=== PATIENT | female | born 1990 | race Caucasian/White ===

== ENCOUNTER 2017-05-02 19:32 | Emergency (ER) | payer OTHER ==
[~2017-05-02] VITALS: Ht 170.2 cm; Wt 85.7 kg
[~2017-05-02 19:32] MED LIST: OXYC-12 PO; PREN1TAB14 PO
--- NOTE | 2017-05-02 19:51 | ED Lower Extremity ---
General Chief Complaint: Lower Extremity Stated Complaint: RT FOOT PAIN Nursing Triage Note: PT TO ED 10 PER W/C W/ FAMILY FOR C/O RT FOOT PAIN ONSET 1530 TODAY WHILE JUMPING OFF DIVING BOARD AT [employer] Nursing Sepsis Screen: No Definite Risk Source: patient, RN notes reviewed Exam Limitations: no limitations History of Present Illness Time seen by provider: 19:47 Initial Comments Patient presents c/ c/o right foot pain p/ injuring it jumping off a diving board earlier this afternoon. Sounds by the description that she may have hyperflexed her foot. Pain has become steadily worse. Currently an 8/10 c/ weight bearing and ambulation. Better when off it. Onset: this afternoon Severity: moderate (810) Pain/Injury Location: right foot Method of Injury: sports injury (jumping off a diving board) Modifying Factors: Worse With Movement, Improves With Rest Allergies and Home Medications Allergies Coded Allergies: No Known Drug Allergies (Verified Allergy, Unknown, 09/01/09) Home Medications Oxycodone Hcl/Acetaminophen 1 Each Tablet, 1-2 EACH PO Q4H PRN, (Reported) Vits W-Ca,Fe,Fa(<1MG) 1 Each Tablet, 1 TAB PO DAILY, (Reported) Take daily for as long as Constitutional: see HPI : No Musculoskeletal: see HPI, other (right foot pain) All Other Systems Reviewed Negative Unless Noted: Yes (Negative excepted noted.) Past Ixqplrv-Gmgwro-Czgkgi Hx Patient Social History Alcohol Use: Denies Use Recreational Drug Use: No Smoking Status: Never a Smoker Recent Foreign Travel: No Contact w/Someone Who Travel: No Recent Infectious Disease Expo: No Recent Hopitalizations: No Immunizations Up To Date Tetanus Booster (TDap): Unknown Surgeries HX Surgeries: No Respiratory Hx Respiratory Disorders: No Cardiovascular Hx Cardiac Disorders: No Neurological Hx Neurological Disorders: No Reproductive System Hx Reproductive Disorders: No Genitourinary Hx Genitourinary Disorders: No Gastrointestinal Hx Gastrointestinal Disorders: No Musculoskeletal Hx Musculoskeletal Disorders: No Endocrine Hx Endocrine Disorders: No HEENT HX ENT Disorders: No Cancer Hx Cancer: No Psychosocial Hx Psychiatric Problems: No Integumentary HX Skin/Integumentary Disorder: No Blood Transfusions Hx Blood Disorders: No Adverse Reaction to a Blood Tr: No Physical Exam Vital Signs Vital Sign - Last 12Hours 05/02/17 19:36 Temp 98.8 Pulse 121 Resp 20 B/P (MAP) 130/75 Pulse Ox 97 O2 Delivery Room Air Capillary Refill : Less Than 3 Seconds General Appearance: WD/WN, no apparent distress, obese Cardiovascular: tachycardia Respiratory: no respiratory distress Gastrointestinal: other (obese) Ankles: right ankle normal inspection, right ankle no evidence of injury Feet: right foot limited range of motion, right foot pain, right foot soft tissue tenderness (across the top of the foot), right foot swelling (trace) Neurologic/Tendon: normal sensation Neurologic/Psychiatric: no motor/sensory deficits, alert, normal mood/affect, oriented x 3 Skin: warm/dry Progress/Results/Core Measures Results/Orders My Orders Orders - JERONIMO LOGAN DO Foot, Right, 3 View (05/02/17 19:50) Lb Bandage (05/02/17 21:25) Crutches (05/02/17 21:25) Rx-Tramadol Hcl (Rx-Ultram) (05/02/17 21:30) Vital Signs/I&O Vital Sign - Last 12Hours 05/02/17 05/02/17 19:36 21:40 Temp 98.8 Pulse 121 88 Resp 20 18 B/P (MAP) 130/75 Pulse Ox 97 99 O2 Delivery Room Air Room Air Blood Pressure Mean: 93 Diagnostic Imaging Diagonstic Imaging: Xray Plain Films/CT/US/NM/MRI: other (foot; nothing acute per radiologist) Departure Impression Impression: Primary Impression: Sprain of right foot Disposition: 01 HOME, SELF-CARE Condition: Stable Departure-Patient Inst. Decision time for Depature: 21:27 Referrals: SOCORRO LANDA MD Patient Instructions: Sprain (DC) Add. Discharge Instructions: All discharge instructions reviewed with patient and/or family. Voiced understanding. RECOMMEND 2 ALEVE EVERY 8-12 HOURS, OR 600 mg OF IBUPROFEN EVERY 6 HOURS UNTIL COMPLETELY BETTER. JERONIMO LOGAN DO May 02, 2017 19:51
--- NOTE | 2017-05-02 21:10 | Diagnostic Imaging Report ---
INDICATION: Injury. COMPARISON: None. FINDINGS: Three views of the right foot are obtained. No acute fracture, malalignment or osseous destructive process is seen. IMPRESSION: Negative right foot. Dictated by: Dictated on workstation # [id number]
[2017-05-02] MEDS ORDERED: RX-TRAMADOL 50 MG (ULTRAM) TAB PPK#4 PO PRN (21:30)
[2017-05-02 21:40] VITALS: BP 121/78
== END 2017-05-02 21:40 | disposition home or self-care (01) ==
LOC: EDUNIT# 19:32 → ER 19:34
DX: S93.601A Unspecified sprain of right foot, initial encounter (principal); W17.89XA Other fall from one level to another, initial encounter; Y93.39 Activity, other involving climbing, rappelling and jumping off
CPT/HCPCS: 73630; 99282

== ENCOUNTER → 2019-06-04 | Outpatient (CLI) | payer BC ==
--- NOTE | 2019-06-04 19:24 | Diagnostic Imaging Report ---
EXAMINATION: Ultrasound Non-OB of the pelvis dated 06/04/2019. TECHNIQUE: Multiple real-time grayscale images were obtained of the pelvis in various projections endovaginally. Transabdominal imaging was also performed. INDICATION: Pelvic pain. FINDINGS: Uterus is 9.3 cm in greatest dimension. Endometrial stripe is unremarkable. There is an IUD noted. The right ovary is 3.6 cm in greatest dimension and the left is 3.1 cm. There is a cystic lesion in the left ovary which is 2.1 x 0.9 x 1.8 cm in size. It contains multiple septations or could be due to several adjacent cysts. There are other cystic changes bilaterally within the ovaries likely follicles. A cyst near the cervix likely a nabothian cyst. IMPRESSION: 1. IUD noted in the endometrial canal. 2. Cystic changes in both ovaries, largest of which is seen on the left and a follow-up in 2-3 menstrual cycles could reevaluate this finding to assure resolution. Dictated by: Dictated on workstation # [id number]
== END ==
LOC: RAD 18:30
PROVIDERS: ATTEND Nurse Practitioner
DX: N83.202 Unspecified ovarian cyst, left side (principal); N83.201 Unspecified ovarian cyst, right side; Z97.5 Presence of (intrauterine) contraceptive device
CPT/HCPCS: 76830; 76856

== ENCOUNTER → 2020-05-11 | Outpatient (CLI) | payer BC ==
--- NOTE | 2020-05-11 10:03 | Diagnostic Imaging Report ---
Indication: Fall with injury to left shoulder. Time of exam: 9:41 AM Multiple views of the left shoulder were obtained. Glenohumeral and acromioclavicular alignment are normal. Acromiohumeral space is normal. No fracture or dislocation is identified. IMPRESSION: No acute bony abnormality is detected. Dictated by: Dictated on workstation # [id number]
== END ==
LOC: RAD FS 09:25
PROVIDERS: ATTEND Nurse Practitioner
DX: S40.012A Contusion of left shoulder, initial encounter (principal); W19.XXXA Unspecified fall, initial encounter
CPT/HCPCS: 73030

== ENCOUNTER 2022-08-23 06:00 | Inpatient (IN) | payer MEDICAID ==
[~2022-08-23] VITALS: Ht 170 cm; Wt 111.0 kg
[2022-08-23] VITALS (17 sets, daily range): BP systolic 107–138; BP diastolic 53–93
[2022-08-23] MEDS ORDERED: D5 LR IV SOLUTION 1,000 ML IV SCH (06:30)
[2022-08-23] MEDS ORDERED: MINERAL OIL 30 ML UDC TOP PRN (06:30)
[2022-08-23 07:07] LABS: BASOPHILS % (AUTO) 0 % (0-10); EOSINOPHILS # (AUTO) 0.1 10^3/uL (0.0-0.3); EOSINOPHILS % (AUTO) 1 % (0-10); HEMATOCRIT 36 % (35-52); HEMOGLOBIN 11.9 g/dL (11.5-16.0); LYMPHOCYTES # (AUTO) 2.3 10^3/uL (1.0-4.0); LYMPHOCYTES % (AUTO) 28 % (12-44); MEAN CORPUSCULAR HEMOGLOBIN 30 pg (25-34); MEAN CORPUSCULAR HGB CONC 33 g/dL (32-36); MEAN CORPUSCULAR VOLUME 91 fL (80-99); MEAN PLATELET VOLUME 10.3 fL (9.0-12.2); MONOCYTES # (AUTO) 0.5 10^3/uL (0.0-1.0); MONOCYTES % (AUTO) 6 % (0-12); NEUTROPHILS # (AUTO) 5.4 10^3/uL (1.8-7.8); NEUTROPHILS % (AUTO) 64 % (42-75); PLATELET COUNT 266 10^3/uL (130-400); WHITE BLOOD COUNT 8.4 10^3/uL (4.3-11.0)
[2022-08-23] MEDS ORDERED: OXYTOCIN PRE-MIX DRIP 500 ML IV SCH ×2 (08:15→12:15)
--- NOTE | 2022-08-23 08:16 | Labor Progress Note ---
Labor Progress Note Labor Progress Note Date Seen by Provider: Aug 23, 2022 Time Seen by Provider: 08:05 Subjective: Pt denies complaints. Objective: Cervical exam: 4+/0/-3 Consistency: soft Position: anterior Presentation: vertex heart tones: 115 beats per minute, moderate variability, reactive Tocometer: 1-2 ctx/10 minutes Assessment/Plan: Alyssa Ng is a (32 /Para 3/2 ,Gestational Age 40w4d here for induction of labor. AROM done at time of exam with clear fluid return. CEFM/TOCO Start pitocin Anesthesia: none Anticipate vaginal delivery. Vitals - Labs Vital Signs - I&O Vital Signs Date Time Temp Pulse Resp B/P (MAP) Pulse Ox O2 Delivery O2 Flow Rate FiO2 08/23/22 07:20 36.4 80 16 123/93 (103) Room Air 08/23/22 06:24 36.6 83 20 97 Room Air Labs Laboratory Tests 08/23/22 06:57: White Blood Count 8.4, Red Blood Count 3.98, Hemoglobin 11.9, Hematocrit 36, Mean Corpuscular Volume 91, Mean Corpuscular Hemoglobin 30, Mean Corpuscular Hemoglobin Concent 33, Red Cell Distribution Width 13.6, Platelet Count 266, Mean Platelet Volume 10.3, Immature Granulocyte % (Auto) 0, Neutrophils (%) (Auto) 64, Lymphocytes (%) (Auto) 28, Monocytes (%) (Auto) 6, Eosinophils (%) (Auto) 1, Basophils (%) (Auto) 0, Neutrophils # (Auto) 5.4, Lymphocytes # (Auto) 2.3, Monocytes # (Auto) 0.5, Eosinophils # (Auto) 0.1, Basophils # (Auto) 0.0, Immature Granulocyte # (Auto) 0.0 KOLBY GUZMAN MD Aug 23, 2022 08:16
[2022-08-23] MEDS ORDERED: LIDOCAINE/EPI 2% 1:200,00 (XYLOCAINE) 10 ML VIAL ONE (08:19)
--- NOTE | 2022-08-23 08:21 | History & Physical-OB/GYN ---
OB - Chief Complaint & HPI Date/Time Date of Admission: Date of Admission: Aug 23, 2022 at 06:10 Date seen by a Provider: Aug 23, 2022 Time Seen by a Provider: 08:05 Chief Complaint/History OB-Reason for Admission/Chief: Induction of Labor Hx : 3 Hx Para: 2 Hx Last Menstrual Period: 11/12/2021 Expected Date of Delivery: Aug 19, 2022 Gestational Age in Weeks: 40 Gestational Age in Days: 4 Indication for induction: post dates Other reason for admission: History of precipitous labor Admission Nurse Assessment Rev: Yes History of Labs Patient is O+, rubella immune, HIV neg, G/C neg, Hep B neg, RPR neg, Antibody neg, GBS neg. 08/23/22 @ 0657 Hgb is 11.9 Allergies and Home Medications Allergies Coded Allergies: No Known Drug Allergies (Verified , 09/01/09) Patient Home Medication List Home Medication List Reviewed: Yes Escitalopram Oxalate (Lexapro) 10 Mg Tablet, 10 MG PO DAILY, (Reported) Entered as Reported by: KOLBY GUZMAN on 08/23/22 0840 Last Action: Reviewed Vits W-Ca,Fe,Fa(<1MG) ( Vitamins) 1 Each Tablet, 1 TAB PO DAILY, (Reported) Entered as Reported by: SUNITA CLARK on 02/19/13 0944 Last Action: Reviewed Discontinued Medications Oxycodone Hcl/Acetaminophen (Percocet 5-325 Mg Tablet) 1 Each Tablet, 1-2 EACH PO Q4H PRN, (Reported) Entered as Reported by: ANTHONY LITTLE on 02/20/13 1307 Last Action: Discontinued OB - History Hx of Present Care: Yes Ultrasounds: Normal mid trimester US Obstetrical Complications: None Medical Complications: None Information Induced Hypertension: No Maternal Gestational Diabetes: No Hemorrhage: No Obstetrical History Hx : 3 Hx Para: 2 Hx # Term Pregnancies: 2 Hx # Pregnancies: 0 Number of Living Children: 2 Hx Termination: No Hx Multiple Gestation: No Hx Stillbirth: No Hx Complication: No Hx Induced Hypertens: No Hx Maternal Gestational Diabet: No Delivery History Hx Dystocia: No Hx Large For Gestational Age I: No Hx Section: No Hx Vaginal Delivery Post C-Sec: No Hx Blood Disorders: No Adverse Rxn to Tranfusion: No Patient Past Medical History Anxiety Social History/Family History Alcohol Use: Occasionally Uses Recreational Drug Use: No Smoking Cessation: Never smoker Immunizations Influenza Vaccine Up-to-Date: No; Not Current Hepatitis A: No Hepatitis B: No Tetanus Booster (TDap): Less than 5yrs Rubella: immune RPR/VDRL: Negative GBS Status: Negative HBsAG: Negative OB - Admission Exam Physical Exam Vitals: Vital Signs 08/23/22 08/23/22 06:24 07:20 Temp 36.4 Pulse 80 Resp 16 B/P (MAP) 123/93 (103) Pulse Ox 97 O2 Delivery Room Air HEENT: Moist Membranes Heart: Rhythm Normal Lungs: Clear Abdomen: Gravid Extremities: Normal Reflexes: Normal Cervical Dilatation: 4cm Effacement: 0% Station: -3 Membranes: Ruptured (at time of exam) Amniotic Fluid: Clear Heart Rate: 120's Accelerations: Accelerations Present Decelerations: No Decelerations Short Term Variability: Present Activity Manager Variability: Minimal (3-5) Contractions on Admission: >10 Minutes Apart Intensity: Mild Cuevas Scoring Tool (Modified) Dilation (cm): 3-4cm (2) Effacement (%): 0-30% (0) Descent/Station: -3 (0) Cervix Consistency: Firm (0) Cervix Position: Anterior (2) Add 1 point for: Each previous vaginal delivery (1) (2) Subtract 1 point for: Postdate (-1) Cuevas Score: 5 Labs Laboratory Tests Test 08/23/22 06:57 Range/Units White Blood Count 8.4 4.3-11.0 10^3/uL Red Blood Count 3.98 3.80-5.11 10^6/uL Hemoglobin 11.9 11.5-16.0 g/dL Hematocrit 36 35-52 % Mean Corpuscular Volume 91 80-99 fL Mean Corpuscular Hemoglobin 30 25-34 pg Mean Corpuscular Hemoglobin Concent 33 32-36 g/dL Red Cell Distribution Width 13.6 10.0-14.5 % Platelet Count 266 130-400 10^3/uL Mean Platelet Volume 10.3 9.0-12.2 fL Immature Granulocyte % (Auto) 0 % Neutrophils (%) (Auto) 64 42-75 % Lymphocytes (%) (Auto) 28 12-44 % Monocytes (%) (Auto) 6 0-12 % Eosinophils (%) (Auto) 1 0-10 % Basophils (%) (Auto) 0 0-10 % Neutrophils # (Auto) 5.4 1.8-7.8 10^3/uL Lymphocytes # (Auto) 2.3 1.0-4.0 10^3/uL Monocytes # (Auto) 0.5 0.0-1.0 10^3/uL Eosinophils # (Auto) 0.1 0.0-0.3 10^3/uL Basophils # (Auto) 0.0 0.0-0.1 10^3/uL Immature Granulocyte # (Auto) 0.0 0.0-0.1 10^3/uL OB - Assessment/Plan/Diagnosis Assessment Assessment: induction of labor Admission Dx 1. Induction of labor at 40w4d 2. Hx of precipitous labor Admission Status: Inpatient Order (span 2 midnights) Reason for Inpatient Admission: 1. Induction of labor 2. Hx of precipitous labor Plan Plan: Induction Induction Method: per Pitocin Protocol TOM KAUR Aug 23, 2022 08:21
[2022-08-23] MEDS: OXYTOCIN PRE-MIX DRIP 500 ML IV SCH ×2 (08:24→12:00)
[2022-08-23] MEDS ORDERED: ESCI10TA PO (08:40)
[2022-08-23] MEDS ORDERED: ONDANSETRON 4 MG/2 ML (SDV) Z0FRAN IVP PRN (11:00)
[2022-08-23] MEDS ORDERED: ONDANSETRON 4 MG/2 ML (SDV) Z0FRAN ONE (11:01)
--- NOTE | 2022-08-23 12:14 | OB Labor & Delivery Record ---
Vag Delivery Note Vag Delivery Note Date of Delivery: 08/23/22 Preoperative Diagnosis: Alyssa barnes a (32 /Para 3 / 2, Gestational Age (wks)40with 4 days Postoperative Diagnosis: Same Surgeon: KOLBY GUZMAN Lighting Director: Cristina Wesley, OMS3 Anesthesia: None Delivery Type: Findings: Viable male infant, apgars [], weight 7#2 Lacerations: bilateral labial abrasions, second degree perineal laceration Intact placenta with 3 vessel cord. No nuchal cord, body cord or shoulder dyst ocia Cytotec 800 mcg placed for hemorrhage prophylaxis Estimated Blood Loss: 150 ml Complications: None Condition: Stable Description of Procedure: The patient is a 32 year old female who presented for induction of labor. She was admitted and informed consent was obtained. Her labor course was remarkable for rapid progression. She progressed to complete dilatation and began to push. She was then set up for delivery. The infant's head was delivered atraumatically in the MACARIO position. The shoulders and remainder of the infant's body were then delivered without difficulty. Upon delivery, the was placed on maternal abdomen. The cord was doubly clamped and cut and the infant was handed off to the pediatric staff. An intact placenta with 3-vessel cord delivered via Cheryl and there was found to be minimal bleeding.~ Vigorous fundal massage was performed and the fundus was found to be firm. IV oxytocin was given. Examination of the vagina and perineum revealed a second degree perineal laceration repaired in the usual fashion with 3-0 vicryl rapide suture. Following the repair, sponge, instrument and needle counts were correct. Mom and baby were both in stable condition in the labor suite. Vitals - Labs Vital Signs - I&O Vital Signs Date Time Temp Pulse Resp B/P (MAP) Pulse Ox O2 Delivery O2 Flow Rate FiO2 08/23/22 12:04 70 18 129/64 (85) Room Air 08/23/22 11:49 71 18 138/61 (86) Room Air 08/23/22 11:34 36.5 82 20 129/63 (85) Room Air 08/23/22 10:45 70 20 137/61 (86) Room Air 08/23/22 10:00 36.4 82 16 123/53 (76) Room Air 08/23/22 09:30 68 16 127/74 (91) Room Air 08/23/22 09:00 75 18 127/81 (96) Room Air 08/23/22 08:30 63 18 135/76 (95) Room Air 08/23/22 07:20 36.4 80 16 123/93 (103) Room Air 08/23/22 06:24 36.6 83 20 97 Room Air Labs Laboratory Tests 08/23/22 06:57: White Blood Count 8.4, Red Blood Count 3.98, Hemoglobin 11.9, Hematocrit 36, Mean Corpuscular Volume 91, Mean Corpuscular Hemoglobin 30, Mean Corpuscular Hemoglobin Concent 33, Red Cell Distribution Width 13.6, Platelet Count 266, Mean Platelet Volume 10.3, Immature Granulocyte % (Auto) 0, Neutrophils (%) (Au to) 64, Lymphocytes (%) (Auto) 28, Monocytes (%) (Auto) 6, Eosinophils (%) (Auto) 1, Basophils (%) (Auto) 0, Neutrophils # (Auto) 5.4, Lymphocytes # (Auto) 2.3, Monocytes # (Auto) 0.5, Eosinophils # (Auto) 0.1, Basophils # (Auto) 0.0, Immature Granulocyte # (Auto) 0.0 KOLBY GUZMAN MD Aug 23, 2022 12:14
[2022-08-23] MEDS ORDERED: LIDOCAINE/EPI 2% 1:200,00 (XYLOCAINE) 10 ML VIAL INJ ONE (12:15)
[2022-08-23] MEDS ORDERED: WITCH HAZEL(TUCKS) 40 EA JAR TOP PRN (12:15)
[2022-08-23] MEDS ORDERED: BENZOCAINE/MENTHOL (DERMOPLAST) 56 ML CAN TP PRN (12:15)
[2022-08-23] MEDS: IBUPROFEN 600 MG (MOTRIN) TAB PO SCH ×2 (12:33→18:14)
[2022-08-23] MEDS ORDERED: CATHETER FLUSH 10 ML SYR IV SCH (14:00)
[2022-08-23] MEDS: DOCUSATE SODIUM 100 MG (COLACE) CAP PO SCH (20:13)
[2022-08-23] MEDS: CATHETER FLUSH 10 ML SYR IV SCH ×2 (20:14→22:02)
[2022-08-24] VITALS: BP 131/74
[2022-08-24 04:00] VITALS: BP 103/76
[2022-08-24 06:02] LABS: BASOPHILS % (AUTO) 0 % (0-10); EOSINOPHILS # (AUTO) 0.1 10^3/uL (0.0-0.3); EOSINOPHILS % (AUTO) 1 % (0-10); HEMATOCRIT 35 % (35-52); HEMOGLOBIN 11.3 g/dL (11.5-16.0); LYMPHOCYTES # (AUTO) 2.6 10^3/uL (1.0-4.0); LYMPHOCYTES % (AUTO) 23 % (12-44); MEAN CORPUSCULAR HEMOGLOBIN 30 pg (25-34); MEAN CORPUSCULAR HGB CONC 33 g/dL (32-36); MEAN CORPUSCULAR VOLUME 92 fL (80-99); MEAN PLATELET VOLUME 10.4 fL (9.0-12.2); MONOCYTES # (AUTO) 0.8 10^3/uL (0.0-1.0); MONOCYTES % (AUTO) 7 % (0-12); NEUTROPHILS # (AUTO) 7.7 10^3/uL (1.8-7.8); NEUTROPHILS % (AUTO) 68 % (42-75); PLATELET COUNT 254 10^3/uL (130-400); WHITE BLOOD COUNT 11.2 10^3/uL (4.3-11.0)
[2022-08-24] MEDS: CATHETER FLUSH 10 ML SYR IV SCH (06:32)
[2022-08-24] MEDS: IBUPROFEN 600 MG (MOTRIN) TAB PO SCH ×2 (06:32)
[2022-08-24] MEDS ORDERED: IBUP-844 PO (08:08)
--- NOTE | 2022-08-24 08:11 | Discharge Summary ---
Diagnosis/Chief Complaint Date of Admission Aug 23, 2022 at 06:10 Date of Discharge August 24, 2022 Admission Diagnosis Admission Diagnosis 1. Intrauterine at 40 weeks gestation Discharge Diagnosis 1. Intrauterine at 40 weeks gestation Chief Complaint/HPI Chief Complaint/HPI 32-year-old 3 now term 3 L3 who initiated presented to labor and delivery at 40 weeks 4 days' gestation for induction of labor. She was noted to be GBS negative. Her care was essentially unremarkable. Discharge Summary-OBS Procedures 1. Spontaneous vaginal delivery 2. Repair of second-degree perineal laceration Discharge Physical Examination Allergies: Coded Allergies: No Known Drug Allergies (Verified , 09/01/09) Vitals & I&Os Intake and Output 08/24/22 00:00 Intake Total 1200 ml Balance 1200 ml Vital Sign - Last 12Hours Date Time Temp Pulse Resp B/P (MAP) Pulse Ox O2 Delivery O2 Flow Rate FiO2 08/24/22 04:00 36.7 64 18 103/76 (85) 96 Room Air General Appearance: Alert, No Acute Distress Respiratory: Clear to Auscultation Cardiovascular: Regular Rate Abdominal: Soft (with uterus firm) Hospital Course Was the Problem List Reviewed?: Yes She was noted to be GBS negative. She ultimately underwent artificial rupture membranes and went on to deliver a term viable male. She had second-degree perineal I laceration which was repaired by Dr. Mcallister without difficulty. See labor and delivery note for full details. Following delivery she underwent routine care orders. She had no complications during the remainder of hospital stay. Her hemoglobin in the morning of August 24 was 11.3 compared to admission of 11.9. She was without any shortness of breath or chest pain. She was felt ready for dismissal during the afternoon of August 24, 2022. Labs Laboratory Tests 08/24/22 05:39: White Blood Count 11.2H, Red Blood Count 3.79L, Hemoglobin 11.3L, Hematocrit 35, Mean Corpuscular Volume 92, Mean Corpuscular Hemoglobin 30, Mean Corpuscular Hemoglobin Concent 33, Red Cell Distribution Width 13.7, Platelet Count 254, Mean Platelet Volume 10.4, Immature Granulocyte % (Auto) 0, Neutrophils (%) (Auto) 68, Lymphocytes (%) (Auto) 23, Monocytes (%) (Auto) 7, Eosinophils (%) (Auto) 1, Basophils (%) (Auto) 0, Neutrophils # (Auto) 7.7, Lymphocytes # (Auto) 2.6, Monocytes # (Auto) 0.8, Eosinophils # (Auto) 0.1, Basophils # (Auto) 0.0, Immature Granulocyte # (Auto) 0.0 Discharge Instructions to patient/family Please see electronic discharge instructions given to patient. Discharge Medications Reviewed and agree with Discharge Medication list on patient's Discharge Instruction sheet JEREL DAIGLE MD Aug 24, 2022 08:11
--- NOTE | 2022-08-24 08:13 | Discharge Inst-Women's Service ---
Discharge Inst-Women's Serv Depart Medication/Instructions New, Converted or Re-Newed RX: Transmitted to Pharmacy Problems Reviewed?: Yes Consults/Follow Up Additional Follow Up: Yes (Dr. Mcallister in 6 weeks) Activity Activity: Activity as Tolerated Driving Instructions: No Driving for 1 Week Nothing Inside Vagina: No [place] (for 6 weeks) Diet Discharge Diet: Regular Diet Return to The Hospital For: as below Symptoms to Report to : Bleeding Excessive, Fever Over 101 Degrees F, Vaginal Discharge Foul For Any Problems or Questions: Contact Your Physician JEREL DAIGLE MD Aug 24, 2022 08:13
[2022-08-24] MEDS: DOCUSATE SODIUM 100 MG (COLACE) CAP PO SCH (09:59)
[2022-08-24 10:00] VITALS: BP 120/77
== END 2022-08-24 16:20 | disposition home or self-care (01) | DRG 807 ==
LOC: LDRP 06:10
PROVIDERS: ADMIT Family Medicine; ATTEND Family Medicine
PROC: 10E0XZZ Delivery of Products of Conception, External Approach (ICD-10-PCS; principal; 2022-08-23)
PROC: 0KQM0ZZ Repair Perineum Muscle, Open Approach (ICD-10-PCS; 2022-08-23)
PROC: 10907ZC Drainage of Amniotic Fluid, Therapeutic from Products of Conception, Via Natural or Artificial Opening (ICD-10-PCS; 2022-08-23)
PROC: 3E033VJ Introduction of Other Hormone into Peripheral Vein, Percutaneous Approach (ICD-10-PCS; 2022-08-23)
DX: O48.0 Post-term pregnancy (principal); Z37.0 Single live birth; Z3A.40 40 weeks gestation of pregnancy; O70.1 Second degree perineal laceration during delivery; O99.344 Other mental disorders complicating childbirth; F41.9 Anxiety disorder, unspecified
CPT/HCPCS: 36415; 85025; 86850; 86900; 86901